=== PATIENT | female | born 1995 | race Two or more races ===

== ENCOUNTER 2025-10-07 14:28 | Observation (INO) | payer MEDICAID ==
--- NOTE | 2025-10-08 09:27 | DVHDS2 ---
Physician Discharge Progress N Final Diagnosis: [facility] 38WKS Operations or Procedures: Operations or Procedures NST REACTIVE REVIWEDLALA 38WKS Condition on Discharge: Good Disposition: Home Discharge Instructions: Diet: Regular Activity: Light activity Medications: NA Follow Up Care: Specialist: 1D Discharge Statement: "Patient was advised to return to the ER or call 911 if any headaches, dizziness, shortness of breath, chest pain, abdominal pain, bleeding, fevers, or worsening of medical condition. Patient was counseled about treatment plan, medications, possible side effects, patientverbalized understanding. All questions were answered to the best of my ability. This discharge took greater then 30 minutes in planning, reviewing documentation, counseling the patient, and discussing with other team members." Visit Coding OBGYN Date of Service: Oct 07, 2025 Billing Provider: MENG SHEEHAN DO SPRAY APPLICATOR Common Visit Codes: 89069-[id number] OBS CARE (HIGH) SPRAY APPLICATOR Procedure Codes: 40253-76- NON-STRESS TEST MENG SHEEHAN DO Oct 08, 2025 09:27
== END 2025-10-07 15:52 | disposition home or self-care (01) ==
LOC: LDRP 14:28
PROVIDERS: ADMIT Obstetrics & Gynecology; ATTEND Obstetrics & Gynecology
DX: O62.9 Abnormality of forces of labor, unspecified (principal); Z3A.38 38 weeks gestation of pregnancy; Z98.890 Other specified postprocedural states
CPT/HCPCS: 59025; 81002; 94760; A4649; G0378